=== PATIENT | male | born 1980 | race Caucasian/White ===

== ENCOUNTER 2025-10-03 10:47 | Emergency (ER) | payer OTHER, SELFPAY ==
[2025-10-03 10:47] VITALS: BP 145/97; PULSE 95; RESP 16; TEMP 36.2; O2SAT 97
--- NOTE | 2025-10-03 11:02 | ED.DENTAL ---
HPI - Dental/Oral General Chief complaint: Dental/Oral Stated complaint: dental pain Time Seen by Provider: 10/03/25 11:01 Source: patient Mode of arrival: ambulatory Limitations: no limitations History of Present Illness HPI Narrative: Patient is a 45-year-old male with left upper dental pain for the past few days. He has known wisdom teeth in the left upper jaw that comes and goes and causes pain and infection once or twice a year. MD Complaint: tooth pain Location: Tooth # (Behind number tooth 16 wisdom tooth) Onset (ago): day(s) (2-3) Duration: constant Severity: moderate Severity scale (1-10): 5 Relieving factors: nothing Exacerbating factors: chewing, cold, heat and drinking fluids Context: history of dental caries and poor dental care Associated symptoms: other (None) Treatment prior to arrival: none Related Data Allergies Allergy/AdvReac Type Severity Reaction Status Date / Time No Known Allergies Allergy Verified 10/03/25 11:13 Review of Systems Review of Systems: All systems reviewed & are unremarkable except as noted in HPI and below Constitutional: Constitutional: Reports no additional constitutional complaints Eyes: Eyes: Reports no additional eye complaints ENT: Reports system reviewed and no additional complaints, except as documented Cardiovascular: Cardiovascular: Reports no additional cardiovascular complaints Respiratory: Respiratory: Reports no additional respiratory complaints Gastrointestinal: Gastrointestinal: Reports no additional gastrointestinal complaints Genitourinary: Genitourinary: Reports no additional male genitourinary complaints Musculoskeletal: Musculoskeletal: Reports no additional musculoskeletal complaints Integumentary/Breasts: Skin/Breast: Reports system reviewed and no additional complaints, except as docu Neurologic: Reports system reviewed and no additional complaints, except as documented Psychiatric: Psychiatric: Reports no additional psychiatric complaints Endocrine: Endocrine: Reports no additional endocrine complaints Hematologic/Lymphatic: Hematologic/Lymphatic: Reports no additional hematologic/lymphatic complaints Allergic/Immunologic: Allergic/Immunologic: Reports no additional allergic/immunologic complaints Exam Const: General: healthy appearing Nutritional Appearance: well nourished Orientation/consciousness: patient oriented x3 Limitations: no limitations HENMT: Head: normal to inspection Ears: external ears normal Face/Nose/Sinus: Normal external nose present Face and sinus: normal facial exam Mouth: Yes Normal oral and palatal mucosa present Teeth and gingiva: abnormal dentition Throat: posterior oropharynx normal Other: [employer] tooth behind 16 is breaking through the gums and causing irritation and inflammation; no abscess seen Eyes: Conjunctivae: conjunctivae normal Pupils: Equal, round and reactive pupils present EOM: EOMs intact bilaterally Neck: Neck: normal visual inspection Chest: Chest palpation & inspection: normal inspection of the chest and normal inspection of the chest Resp: Effort & Inspection: normal respiratory effort and not labored Auscultation: clear to auscultation bilaterally and no crackles Cardio: Rate: regular rate Rhythm: regular rhythm Heart sounds: no murmurs GI: Inspection: non-distended GI Palp: Yes Soft to palpation and No Tenderness to palpation present (GI) Auscultation: normal bowel sounds : General: Yes bladder normal to palpation Back/Spine/Pelvis: Back: no CVA tenderness Skin: General skin exam: normal color Rashes: no rashes Wounds: no wounds Neuro: General: patient oriented x3, moves all extremities and no meningeal signs Extrem: General: normal to inspection and no clubbing, cyanosis or edema Psych: Mental Status: mental status grossly normal Affect: normal affect Attitude: cooperative Course Vital Signs Vital signs: Vital Signs Temperature 36.2 C L 10/03/25 10:47 Pulse Rate 95 10/03/25 10:47 Respiratory Rate 16 10/03/25 10:47 Blood Pressure 145/97 H 10/03/25 10:47 Pulse Oximetry 97 10/03/25 10:47 Oxygen Delivery Room Air 10/03/25 10:47 Temperature 36.2 C L 10/03/25 10:47 Pulse Rate 95 10/03/25 10:47 Respiratory Rate 16 10/03/25 10:47 Blood Pressure 145/97 H 10/03/25 10:47 Pulse Oximetry 97 10/03/25 10:47 Oxygen Delivery Room Air 10/03/25 10:47 MDM MDM Narrative Medical decision making narrative: Patient is a 45-year-old male with left upper jaw pain in the wisdom tooth for the past few days. Dentist soon as possible planned. Augmentin 875 for 10 days. Differential Diagnosis Differential Diagnosis: Dental caries, dental abscess Discharge Plan Discharge Clinical Impression: Maxilla pain Patient Disposition: Home Condition: Stable Instructions: Antibiotic Form, Toothache (ED) Additional Instructions: Please see dentist as soon as possible. Patient Language: Hebrew Prescriptions: New amoxicillin-pot clavulanate 875-125 mg tablet 1 tablet PO BID 10 Days Qty: 20 0RF Follow-up/Referrals: Fer Lozano MD [Primary Care Provider, Internal Medicine] Time of Disposition: 11:12
[2025-10-03 11:30] VITALS: BP 145/97; PULSE 95; RESP 16; TEMP 36.2; O2SAT 97
== END 2025-10-03 11:30 | disposition home or self-care (01) ==
LOC: CHSED 11:26
PROVIDERS: Emergency Provider Emergency Medicine; PCP Internal Medicine
DX: R68.84 Jaw pain (principal)
CPT/HCPCS: 99283

== ENCOUNTER 2025-10-04 16:48 | Emergency (ER) | payer OTHER, SELFPAY ==
[2025-10-04 16:49] VITALS: BP 163/106; PULSE 113; RESP 16; TEMP 36.1; O2SAT 97
--- NOTE | 2025-10-04 17:26 | ED_ITS ---
HPI - Dental/Oral General Chief complaint: Dental/Oral Stated complaint: dental pain Time Seen by Provider: 10/04/25 16:57 Source: patient History of Present Illness HPI Narrative: 45-year-old white male presents with dental pain off and on for the last few weeks in the left upper jaw, however the last 2 3 days it has gotten worse, involves his upper left rear molar, it has been localized swelling, and the pain has gotten to where he can not get with sleep. He came into the ER yesterday, was diagnosed with a dental infection, prescribed Augmentin, discharge with instructions for Tylenol and ibuprofen, and he reports she took 1 dose of the Augmentin yesterday, and another dose this morning, but it still hurts. He has not been taking the Tylenol ibuprofen cares he said that probably will not help. Returns now pain worsening, but no fever or chills, no difficulty swallowing, no visual change, no double vision. Related Data Allergies Allergy/AdvReac Type Severity Reaction Status Date / Time No Known Allergies Allergy Verified 10/03/25 11:13 Review of Systems Review of Systems: ROS is negative except as in HPI Exam Narrative: pleasant, well-appearing, appropriately interactive, no acute distress There is some mild swelling to the left upper jaw, posterior aspect without evidence of abscess, erythema, warmth, or cellulitis. While the gum is tender there is no fluctuance Rest of the oropharynx is unremarkable, dentition overall is fair Const: General: cooperative, healthy appearing, comfortable, no acute distress, well developed, alert, awake and Physically active Orientation/consciousness: patient oriented x3 HENMT: Head: normal to inspection, normocephalic and atraumatic Ears: hearing grossly normal bilaterally and external ears normal Face/Nose/Sinus: Normal external nose present, Normal nares present, Normal nasal mucous membranes and turbinates present and normal facial exam Face and sinus: normal facial exam Mouth: Yes Normal oral and palatal mucosa present, Yes lip normal, Yes tongue normal, Yes oropharynx normal and Yes moist mucous membranes Teeth and gingiva: abnormal dentition (Fair) Throat: posterior oropharynx normal and tonsils normal ( erythematous) Eyes: General: appearance normal, both eyes and all related structures Alignment and Position: alignment normal and position normal Periorbital: periorbital findings normal Eyelids: eyelids normal Conjunctivae: conjunctivae normal Sclera: sclerae normal Cornea: corneas normal Pupils: Equal, round and reactive pupils present EOM: EOMs intact bilaterally Neck: Neck: normal visual inspection, full ROM and no lymphadenopathy Chest: Chest palpation & inspection: normal inspection of the chest Resp: Effort & Inspection: normal respiratory effort, able to speak in complete sentences, no audible wheezes, no respiratory distress and no use of accessory muscles Auscultation: clear to auscultation bilaterally Cardio: Jugular venous distension: no JVD Rate: regular rate Rhythm: regular rhythm GI: GI Palp: No Soft to palpation, No Tenderness to palpation present (GI), No Guarding due to palpation present (GI), No Rigid due to palpation, No Hernia present, No Palpable mass present and No Rebound tenderness present Skin: General skin exam: normal color, no rashes or lesions noted, elasticity normal and turgor normal Neuro: General: patient oriented x3, gait normal, tone normal and moves all extremities Cranial nerves: Yes CN's II-XII intact bilaterally, Yes Equal, round and reactive pupils present and Yes Bilaterally intact EOM present Speech: normal speech Motor exam (neuro): 5/5 motor strength present throughout and Normal motor muscle tone present throughout Sensory Exam: normal sensation Extrem: General: normal to inspection, normal exam except as noted and no pedal edema Psych: Appearance: grossly normal and well kempt Mental Status: mental status grossly normal Speech and movement: Normal speech and movement present Affect: normal affect Attitude: cooperative Thought process: Normal thought process present Course Course Emergency Course: Differential diagnosis includes dental infection versus abscess but that seems less likely by physical exam. Will treat with IM Rocephin, IM Toradol, have him continue his Augmentin that he began yesterday, and will add naproxen 500 t.i.d. as well as having brushes teeth every 2 3 hours during the day with mouthwash and a soft bristle brush. He is to follow-up with his dentist or call did this on her resource list for dental follow-up. Medical decision making complexity and risk is low Vital Signs Vital signs: Vital Signs Temperature 36.1 C L 10/04/25 16:49 Pulse Rate 113 H 10/04/25 16:49 Respiratory Rate 16 10/04/25 16:49 Blood Pressure 163/106 H 10/04/25 16:49 Pulse Oximetry 97 10/04/25 16:49 Oxygen Delivery Room Air 10/04/25 16:49 Temperature 36.6 C 10/04/25 17:42 Pulse Rate 95 10/04/25 17:42 Respiratory Rate 16 10/04/25 17:42 Blood Pressure 152/89 H 10/04/25 17:42 Pulse Oximetry 98 10/04/25 17:42 Oxygen Delivery Room Air 10/04/25 17:42 MDM Differential Diagnosis Differential Diagnosis: C in chart Discharge Plan Discharge Clinical Impression: Dental caries, Toothache Patient Disposition: Home Condition: Stable Instructions: Antibiotic Form, Toothache (ED) Additional Instructions: brush your teeth, gums, tongue, palate with a soft bristle toothbrush every 2 hours while awake using mouthwash. Tylenol 1 g every 6 hours as needed for pain Naproxen 500 mg every 8-12 hours as needed for pain Continue your antibiotic, amoxicillin potassium clavulanate prescribed yesterday Call around in the morning to dentist to set up follow-up in 3-10 days, we have provided you with a list of potential dentist, but you may have to call an extensive number of dentist go find someone that can see you. Increase fluids Return to the emergency department for high fever, worsening swelling, swelling around the left eye, worsening headache, double vision, other concerns Patient Language: Afghan Prescriptions: New naproxen 500 mg tablet 500 mg PO TID PRN (Reason: pain) Qty: 90 0RF No Action amoxicillin-pot clavulanate 875-125 mg tablet 1 tablet PO BID 10 Days Qty: 20 0RF Follow-up/Referrals: Fer Lozano MD [Physician, Internal Medicine] Stand Alone Forms: Work/School Release IP Time of Disposition: 17:24
--- NOTE | 2025-10-04 17:37 | PC.NURSE ---
Patient declined IM Rocephin and IM Toradol, after education on purpose, benefits, and potential?risk of omission. Patient A&Ox4 and voiced understanding. ERP notified of refusal and current clinical status. Plan of care ongoing.?
[2025-10-04 17:42] VITALS: BP 152/89; PULSE 95; RESP 16; TEMP 36.6; O2SAT 98
== END 2025-10-04 17:42 | disposition home or self-care (01) ==
PROVIDERS: Emergency Provider Emergency Medicine; Referring Provider Internal Medicine
DX: K02.9 Dental caries, unspecified (principal)
CPT/HCPCS: 99283; J0696; J1885; J2003